=== PATIENT | male | born 1985 | race Caucasian/White ===

== ENCOUNTER 2018-04-07 09:20 | Emergency (ER) | payer SELFPAY ==
[2018-04-07 09:21] VITALS: BP 147/79; PULSE 104; RESP 17; TEMP 37.1; O2SAT 100; BMI 22.3
--- NOTE | 2018-04-07 09:45 | RAD_ITS ---
STUDY: X-RAY - ORBITS REASON FOR EXAM: Male, 32 years old. Trauma to the left orbit TECHNIQUE: 5 view(s) of the orbits were obtained. COMPARISON: None. FINDINGS: Normal bilateral orbits without a metallic orbital foreign body. Normal visualized facial bones. Normal paranasal sinuses. No evidence of fracture The soft tissue structures are unremarkable. RAD/Orbits Min 4 Views IMPRESSION: No acute findings Electronically Signed: Cornelio Kramer DO at 10:16 EDT Tel , Service support ,
[2018-04-07] MEDS: Fluorescein 1 MG STRIP 1 STRIP LEFT EYE (10:54)
[2018-04-07] MEDS: Tetracaine 0.5% Ophthalmic Bottle 1 DRP LEFT EYE (10:54)
--- NOTE | 2018-04-07 11:47 | ED.VISSUMM ---
- ER Visit Summary Date of Service: 04/07/18 Chief Complaint: Left eye injury and pain History of Present Illness: The patient is a 32 M who presents for severe left eye pain after an injury yesterday. Patient was playing basketball yesterday and an opponent's head struck him in the left eye, with the opponent having a large coarse bun. Patient was struck in the eye by the hair. He is complaining of eye pain, in the periorbital region and the eye itself. He does not use corrective lenses. He has photophobia, pain and discharge. Denies any other injuries. No loss of consciousness. Physical Examination: Patient is awake and alert, well-nourished well-developed sitting in bed with the lights off, appears uncomfortable. Periorbital region of the left eye is ecchymotic with minimal swelling. Pupils are equal round reactive to light, no pain to consensual constriction. Extraocular movement intact without pain. No palsy. No foreign bodies noted on lid eversion. With fluorescein instilled, large corneal abrasion. Negative [place] sign. Anterior chamber is deep and quiet. Diffuse conjunctival injection. Remainder of exam unremarkable. Test Results: [] Emergency Department Course and Treatment: Orbital x-ray was performed to evaluate for any possible orbital fracture. No fractures noted. Patient's slit lamp examination was consistent with a large corneal abrasion, with no evidence of globe rupture. Patient had no pain with ocular movement and extra ocular movement was intact, making entrapment very unlikely. Patient was prescribed erythromycin ointment. Tetracaine was used for ophthalmic pain control, however it was only partially effective. Patient was given a prescription for [place] for additional pain. Patient was discussed with Dr. Queen, who will see the patient this afternoon to instill a protective contact lens at the patient would like. Patient also has the option to try the erythromycin ointment first and follow-up if it is not working. Patient was given the option and will is to call the office to either see Dr. Queen or 1 of his colleagues today or tomorrow. Patient was discharged home. Treatment Plan: [] Disposition: [] Impression: Left corneal abrasion, left periorbital ecchymosis This note was generated with [employer] dictation software. It may contain incorrect words, spelling, and punctuation that were not noted in review of the chart prior to signing ED Disposition - Plan for ED Patient: Disposition: Home or Assisted Living Chief Complaint: Eye Problem Instructions: ED Eye Injury Corneal Abrasion Prescriptions: Hydrocodone/Acetaminophen [[place] 5-325 Tablet] 1 - 2 ea PO 4X/DAY PRN PRN 3 Days #12 tab PRN Reason: Pain Naproxen [Naprosyn] 500 mg PO BID PRN #20 tab Referrals: Tanvir Queen MD [STAFF PHYSICIAN] - As soon as possible Care Physician,No Primary [Primary Care Provider] - Additional Instructions: Please follow-up with the management advisor, calling to make an appointment either this afternoon or tomorrow. They will be able to instill a protective contact lens if you choose. You also have the option to use the antibiotic ointment and then follow-up with ophthalmology. You may use the pain medications as needed for severe pain. If you have any worsening of your condition or any new concerning symptoms, please return immediately to the emergency department for another evaluation.
--- NOTE | 2018-04-07 11:53 | ED.DCSUM_ITS ---
- ER Visit Summary Date of Service: 04/07/18 Chief Complaint: Left eye injury and pain History of Present Illness: The patient is a 32 M who presents for severe left eye pain after an injury yesterday. Patient was playing basketball yesterday and an opponent's head struck him in the left eye, with the opponent having a large coarse bun. Patient was struck in the eye by the hair. He is complaining of eye pain, in the periorbital region and the eye itself. He does not use corrective lenses. He has photophobia, pain and discharge. Denies any other injuries. No loss of consciousness. Physical Examination: Patient is awake and alert, well-nourished well-developed sitting in bed with the lights off, appears uncomfortable. Periorbital region of the left eye is ecchymotic with minimal swelling. Pupils are equal round reactive to light, no pain to consensual constriction. Extraocular movement intact without pain. No palsy. No foreign bodies noted on lid eversion. With fluorescein instilled, large corneal abrasion. Negative [place] sign. Anterior chamber is deep and quiet. Diffuse conjunctival injection. Remainder of exam unremarkable. Test Results: [] Emergency Department Course and Treatment: Orbital x-ray was performed to evaluate for any possible orbital fracture. No fractures noted. Patient's slit lamp examination was consistent with a large corneal abrasion, with no evidence of globe rupture. Patient had no pain with ocular movement and extra ocular movement was intact, making entrapment very unlikely. Patient was prescribed erythromycin ointment. Tetracaine was used for ophthalmic pain control, however it was only partially effective. Patient was given a prescription for [place] for additional pain. Patient was discussed with Dr. Queen, who will see the patient this afternoon to instill a protective contact lens at the patient would like. Patient also has the option to try the erythromycin ointment first and follow-up if it is not working. Patient was given the option and will is to call the office to either see Dr. Queen or 1 of his colleagues today or tomorrow. Patient was discharged home. Treatment Plan: [] Disposition: [] Impression: Left corneal abrasion, left periorbital ecchymosis This note was generated with [employer] dictation software. It may contain incorrect words, spelling, and punctuation that were not noted in review of the chart prior to signing ED Disposition - Plan for ED Patient: Disposition: Home or Assisted Living Chief Complaint: Eye Problem Instructions: ED Eye Injury Corneal Abrasion Prescriptions: Hydrocodone/Acetaminophen [[place] 5-325 Tablet] 1 - 2 ea PO 4X/DAY PRN PRN 3 Days #12 tab PRN Reason: Pain Naproxen [Naprosyn] 500 mg PO BID PRN #20 tab Referrals: Tanvir Queen MD [STAFF PHYSICIAN] - As soon as possible Care Physician,No Primary [Primary Care Provider] - Additional Instructions: Please follow-up with the visual specialist, calling to make an appointment either this afternoon or tomorrow. They will be able to instill a protective contact lens if you choose. You also have the option to use the antibiotic ointment and then follow-up with ophthalmology. You may use the pain medications as needed for severe pain. If you have any worsening of your condition or any new concerning symptoms, please return immediately to the emergency department for another evaluation.
--- NOTE | 2018-04-07 11:54 | DCINST.ED_ITS ---
ED Disposition - Plan for ED Patient: Disposition: Home or Assisted Living Chief Complaint: Eye Problem Instructions: ED Eye Injury Corneal Abrasion Prescriptions: Hydrocodone/Acetaminophen [[place] 5-325 Tablet] 1 - 2 ea PO 4X/DAY PRN PRN 3 Days #12 tab PRN Reason: Pain Naproxen [Naprosyn] 500 mg PO BID PRN #20 tab Referrals: Care Physician,No Primary [Primary Care Provider] - Tanvir Queen MD [STAFF PHYSICIAN] - As soon as possible Additional Instructions: Please follow-up with the printer slotter helper, calling to make an appointment either this afternoon or tomorrow. They will be able to instill a protective contact lens if you choose. You also have the option to use the antibiotic ointment and then follow-up with ophthalmology. You may use the pain medications as needed for severe pain. If you have any worsening of your condition or any new concerning symptoms, please return immediately to the emergency department for another evaluation.
[2018-04-07 12:11] VITALS: BP 121/78; PULSE 74; RESP 16; O2SAT 100
[2018-04-07] MEDS: Erythromycin Base 1 OPTH.TUBE 1 APPLIC LEFT EYE (12:11)
== END 2018-04-07 12:12 | disposition home or self-care (01) ==
PROVIDERS: Emergency Provider Emergency Medicine
DX: S05.02XA Injury of conjunctiva and corneal abrasion without foreign body, left eye, initial encounter (principal); S05.12XA Contusion of eyeball and orbital tissues, left eye, initial encounter; W22.8XXA Striking against or struck by other objects, initial encounter; Y93.67 Activity, basketball; Y92.9 Unspecified place or not applicable
CPT/HCPCS: 70200; 99282

== ENCOUNTER 2018-11-15 03:34 | Emergency (ER) | payer MEDICAID, SELFPAY ==
[2018-11-15 03:35] VITALS: BP 138/93; PULSE 104; RESP 16; TEMP 36.6; O2SAT 100; BMI 20.6
--- NOTE | 2018-11-15 05:04 | ED.DCSUM_ITS ---
- ER Visit Summary Date of Service: 11/15/18 Chief Complaint: Purulent discharge from penis History of Present Illness: The patient is a 33 M who presents with urethral discharge. He also complains of dysuria. No hematuria. No rash or lesions. Symptoms have been present for 1 week. No history of prior sexually transmitted infection. No fever chest pain shortness of breath nausea vomiting diarrhea. Physical Examination: Afebrile heart rate 104 vitals otherwise normal Moist mucous membranes Heart regular rate and rhythm Lungs clear Abdomen soft nontender Test Results: Deferred Emergency Department Course and Treatment: Given patient's reported symptoms we will empirically treat for sexually transmitted infection. He was given intramuscular Rocephin and oral azithromycin and discharged home he was advised to have his sexual partners treated or tested. Treatment Plan: [] Disposition: Discharge Impression: Sexually transmitted infection This note was generated with [employer] dictation software. It may contain incorrect words, spelling, and punctuation that were not noted in review of the chart prior to signing ED Disposition - Plan for ED Patient: Referrals: Care Physician,No Primary [Primary Care Provider] -
--- NOTE | 2018-11-15 05:04 | ED.DEP ---
ED Disposition - Plan for ED Patient: Instructions: ED STD Male Treated Referrals: Care Physician,No Primary [Primary Care Provider] -
[2018-11-15] MEDS: Ceftriaxone 500 MG Vial 250 MG IM (05:44)
[2018-11-15] MEDS: Azithromycin 250 MG Tablet 1000 MG PO (05:46)
[2018-11-15 05:48] VITALS: BP 116/74; PULSE 81; RESP 16; O2SAT 98
== END 2018-11-15 06:15 | disposition home or self-care (01) ==
PROVIDERS: Emergency Provider Emergency Medicine
DX: A64 Unspecified sexually transmitted disease (principal); Z72.0 Tobacco use
CPT/HCPCS: 96372; 99282